=== PATIENT | male | born 1970 | race Caucasian/White ===

== ENCOUNTER 2018-11-26 12:40 | Emergency (ER) | payer BC ==
[2018-11-26] MEDS ORDERED: Albuterol/Ipratropium 3.0-0.5 MG/3 ML Neb Soln NEB ONE (12:58)
--- NOTE | 2018-11-26 12:58 | EDM.PDOC ---
ED HPI GENERAL MEDICAL PROBLEM - General Chief Complaint: Respiratory Problem Stated Complaint: difficulty breathing Time Seen by Provider: 11/26/18 12:51 Source of Information: Reports: Patient History Limitations: Reports: No Limitations - History of Present Illness INITIAL COMMENTS - FREE TEXT/NARRATIVE: in with c/o sob and cough with congestion for the past few days, worse today, no c/o cp, has a congested nose, no ear or throat sx, no abd pain, no nvdc, no unusual neck/back pain or stiffness Onset: Gradual Duration: Day(s): Location: Reports: Chest Quality: Reports: Ache Severity: Mild Improves with: Reports: None Worsens with: Reports: None Associated Symptoms: Reports: Cough, cough w sputum, Fever/Chills, Shortness of Breath. 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: Other (see below) (none) Bilateral Ear Pain Score (Numeric/FACES): 4 - Related Data Allergies Allergy/AdvReac Type Severity Reaction Status Date / Time aspirin Allergy Difficulty Verified 11/26/18 13:02 Breathing Home Meds: Home Meds Albuterol Sulfate [Proair Hfa] 8.5 gm IH Q4HR 7 Days #1 hfa.aer.ad 11/26/18 [Rx] Azithromycin [Zithromax] 500 mg PO DAILY 3 Days #3 tab 11/26/18 [Rx] Montelukast Sodium 10 mg PO DAILY 11/26/18 [History] predniSONE [Prednisone] 50 mg PO DAILY 5 Days #5 tablet 11/26/18 [Rx] Past Medical History Respiratory History: Reports: Asthma Social & Family History - Family History Cardiac: Reports: Hypertension - Tobacco Use Smoking Status *Q: Former Smoker (stopped 6 months ago, smoked for 20 years) - Alcohol Use Alcohol Use History: Yes Alcohol Use Frequency: Rarely - Living Situation & Occupation Living situation: Reports: with Family ED ROS GENERAL - Review of Systems Review Of Systems: See Below Constitutional: Reports: No Symptoms, Fever, Chills HEENT: Reports: Sinus Problem. Denies: Ear Pain, Throat Pain Respiratory: Reports: Shortness of Breath, Wheezing, Cough, Sputum. Denies: Pleuritic Chest Pain Cardiovascular: Reports: No Symptoms. Denies: Chest Pain Endocrine: Reports: No Symptoms GI/Abdominal: Reports: No Symptoms. Denies: Abdominal Pain, Vomiting Musculoskeletal: Reports: No Symptoms. Denies: Neck Pain, Back Pain Skin: Reports: No Symptoms. Denies: Rash Neurological: Reports: No Symptoms. Denies: Dizziness, Headache Psychiatric: Reports: No Symptoms ED EXAM, GENERAL - Physical Exam Exam: See Below Exam Limited By: No Limitations General Appearance: Alert, WD/WN, No Apparent Distress Ears: Normal External Exam, Normal Canal, Hearing Grossly Normal, Normal TMs Ear Exam: Bilateral Ear: Auricle Normal, Canal Normal, TM normal Nose: Normal Inspection, Normal Mucosa Throat/Mouth: Normal Inspection, Normal Lips, Normal Oropharynx, Normal Voice, No Airway Compromise Head: Atraumatic, Normocephalic Neck: Normal Inspection, Supple, Non-Tender, Full Range of Motion Respiratory/Chest: No Respiratory Distress, No Accessory Muscle Use, Chest Non- Tender, Wheezing. No: Lungs Clear, Normal Breath Sounds Cardiovascular: Normal Peripheral Pulses, Regular Rate, Rhythm, No Edema, No Murmur Peripheral Pulses: 2+: Radial (L) GI/Abdominal: Soft, Non-Tender Back Exam: Normal Inspection, Full Range of Motion Extremities: Normal Inspection, Normal Range of Motion, Non-Tender, No Pedal Edema, Normal Capillary Refill. No: Va's Sign Neurological: Alert, Oriented, Normal Cognition, Normal Gait, No Motor/Sensory Deficits Psychiatric: Normal Affect, Normal Mood Skin Exam: Warm, Dry, Intact, Normal Color Course - Vital Signs Last Recorded V/S: Last Vital Signs Temp 36.0 C 11/26/18 12:51 Pulse 126 H 11/26/18 12:51 Resp 18 11/26/18 12:51 BP 105/71 11/26/18 12:51 Pulse Ox 96 11/26/18 12:51 - Orders/Labs/Meds Orders: Active Orders 24 hr Category Date Time Status RT Aerosol Therapy [RC] ASDIRECTED Care 11/26/18 12:59 Active Chest 2V [CR] Stat Exams 11/26/18 12:54 Taken CULTURE BLOOD [BC] Stat Lab 11/26/18 13:05 Received CULTURE BLOOD [BC] Stat Lab 11/26/18 13:10 Received Blood Culture x2 Reflex Set [OM.PC] Stat Oth 11/26/18 12:54 Ordered Labs: Laboratory Tests 11/26/18 11/26/18 Range/Units 13:05 13:10 WBC 6.9 (5.0-10.0) 10^3/uL RBC 4.78 (4.50-6.00) 10^6/uL Hgb 15.4 (14.0-18.0) g/dL Hct 43.9 (40.0-54.0) % MCV 91.8 (82.0-94.0) fL MCH 32.2 H (27.0-32.0) pg MCHC 35.1 (33.0-38.0) g/dL RDW Coeff of Carlos 12.0 (11.0-15.0) % Plt Count 293 (150-400) 10^3/uL Neut % (Auto) 74.4 (35-85) % Lymph % (Auto) 10.1 (10-55) % Wharton % (Auto) 8.6 (0-16) % Eos % (Auto) 6.6 H (0-5) % Baso % (Auto) 0.3 (0-3) % Neut # (Auto) 5.10 (1.80-7.00) 10^3/uL Lymph # (Auto) 0.69 L (1.00-4.80) 10^3/uL [place]arton # (Auto) 0.59 (0.00-0.80) 10^3/uL Eos # (Auto) 0.45 (0.00-0.45) 10^3/uL Baso # (Auto) 0.02 10^3/uL Sodium 137 (136-145) mEq/L Potassium 3.9 (3.5-5.0) mEq/L Chloride 101 (98-106) mEq/L Carbon Dioxide 27 (21-32) mmol/L BUN 6 L (7-18) mg/dL Creatinine 0.9 (0.7-1.3) mg/dL Est Cr Clr Drug Dosing 81.66 mL/min Estimated GFR (MDRD) > 60 (>=60) mL/min Glucose 110 H (75-99) mg/dL Calcium 9.6 (8.4-10.1) mg/dL Magnesium 1.9 (1.8-2.4) mg/dL C-Reactive Protein 1.8 H (0.2-0.8) mg/dL Meds: Medications Discontinued Medications Generic Name Dose Route Start Last Admin Trade Name Freq PRN Reason Stop Dose Admin Albuterol/Ipratropium 3 ml 11/26/18 12:58 11/26/18 13:02 Duoneb 3.0-0.5 Mg/3 Ml NEB 11/26/18 12:59 3 ml ONETIME ONE Administration Azithromycin 500 mg 11/26/18 13:17 Zithromax PO 11/26/18 13:18 ONETIME ONE Dexamethasone 10 mg 11/26/18 13:16 Dexamethasone IM 11/26/18 13:17 ONETIME ONE - Radiology Interpretation Free Text/Narrative:: cxr, the PA view shows hyper-expanded lungs, the lateral view around the cardiac border has some increase marking which can be vascular but can not entirely exclude atelectasis vs infiltrate. Radiology reading is pending Departure - Departure Time of Disposition: 13:18 Disposition: Home, Self-Care 01 Condition: Good Clinical Impression: Asthma exacerbation in COPD - Discharge Information *PRESCRIPTION DRUG MONITORING PROGRAM REVIEWED*: Not Applicable *COPY OF PRESCRIPTION DRUG MONITORING REPORT IN PATIENT [place]: Not Applicable Prescriptions: Albuterol Sulfate [Proair Hfa] 8.5 gm IH Q4HR 7 Days #1 hfa.aer.ad Azithromycin [Zithromax] 500 mg PO DAILY 3 Days #3 tab predniSONE [Prednisone] 50 mg PO DAILY 5 Days #5 tablet Instructions: Asthma, Adult, Shortness of Breath, Adult, [id number] Forms: ED Department Discharge Additional Instructions: increase fluids pro-air inhaler, 2 puffs every 4 hours x 7 days then as needed prednisone 50mg 1 x a day for 5 days zithromax 500mg 1 x a day for 3 days follow up with your family doctor this week, call in am for an appointment time return to the ED sooner if worse or problems - Problem List & Annotations (1) Asthma exacerbation in COPD SNOMED Code(s): 2427613824437 Code(s): J44.1 - CHRONIC OBSTRUCTIVE PULMONARY DISEASE W (ACUTE) EXACERBATION ; J45.901 - UNSPECIFIED ASTHMA WITH (ACUTE) EXACERBATION Status: Acute Priority: High - Problem List Review Problem List Initiated/Reviewed/Updated: Yes - My Orders Last 24 Hours: My Active Orders 11/26/18 12:54 Chest 2V [CR] Stat Blood Culture x2 Reflex Set [OM.PC] Stat 11/26/18 12:59 RT Aerosol Therapy [RC] ASDIRECTED 11/26/18 13:05 CULTURE BLOOD [BC] Stat 11/26/18 13:10 CULTURE BLOOD [BC] Stat - Assessment/Plan Last 24 Hours: My Active Orders 11/26/18 12:54 Chest 2V [CR] Stat Blood Culture x2 Reflex Set [OM.PC] Stat 11/26/18 12:59 RT Aerosol Therapy [RC] ASDIRECTED 11/26/18 13:05 CULTURE BLOOD [BC] Stat 11/26/18 13:10 CULTURE BLOOD [BC] Stat Plan: as above
[2018-11-26] MEDS ORDERED: Dexamethasone 4 MG/ML SDV IM ONE (13:16)
[2018-11-26] MEDS ORDERED: Azithromycin 250 MG Tab PO ONE (13:17)
[2018-11-26 13:20] LABS: CHLORIDE,CL 101 mEq/L (98-106); SODIUM,NA 137 mEq/L (136-145)
== END 2018-11-26 13:34 | disposition home or self-care (01) ==
LOC: CC.ED 12:40
DX: J44.9 Chronic obstructive pulmonary disease, unspecified (principal); Z88.6 Allergy status to analgesic agent; Z79.899 Other long term (current) drug therapy; Z87.891 Personal history of nicotine dependence
CPT/HCPCS: 36415; 71046; 80048; 83735; 85025; 86140; 87040; 94640; 96372; 99284-25; A9270-GY; J1100; J7620-GY